=== PATIENT | male | born 1940 | race Two or more races ===

== ENCOUNTER 2018-01-24 14:09 | Inpatient (IN) | payer OTHER ==
[~2018-01-24] VITALS: Ht 190.5 cm; Wt 106.1 kg
[2018-01-24] MEDS ORDERED: METOPROLOL SUCC50 MG PO (14:34)
[2018-01-24] MEDS ORDERED: COZAAR25 MG PO (14:35)
[2018-01-24] MEDS ORDERED: NORVASC5 MG PO (14:35)
[2018-01-24] MEDS ORDERED: ASPIR-LOW81 MG PO (14:36)
[2018-01-24] MEDS ORDERED: METFORMIN HCL500 MG PO (14:36)
== END 2018-01-28 16:26 | disposition home or self-care (01) | DRG 376 ==
LOC: O/R 01-26 07:40 → SURH 01-26 07:40 → RECOVERY 01-26 11:00 → CIR.AMB 01-26 13:15 → EDSTATUS 01-26 13:16 → RECOVERY 01-26 13:16 → SURG 01-26 14:22 → SURH 01-26 15:19
PROVIDERS: Colon & Rectal Surgery
PROC: 0DBP8ZZ Excision of Rectum, Via Natural or Artificial Opening Endoscopic (ICD-10-PCS; principal; 2018-01-26 11:00)
DX: C20 Malignant neoplasm of rectum (principal); I11.9 Hypertensive heart disease without heart failure; E11.9 Type 2 diabetes mellitus without complications

== ENCOUNTER 2018-05-06 09:01 | Inpatient (IN) | payer OTHER ==
[~2018-05-06] VITALS: Ht 190.5 cm; Wt 102.5 kg
[~2018-05-06 09:01] MED LIST: ASPIR-LOW81 MG PO; COZAAR25 MG PO; METFORMIN HCL500 MG PO; METOPROLOL SUCC50 MG PO; NORVASC5 MG PO
== END 2018-05-13 14:51 | disposition home or self-care (01) | DRG 331 ==
LOC: O/R 05-10 05:03 → SURH 05-10 13:39 → SURG 05-10 14:06 → SURH 05-10 15:45 → SURG 05-13 14:51
PROVIDERS: ADMIT Colon & Rectal Surgery
PROC: 07TC4ZZ Resection of Pelvis Lymphatic, Percutaneous Endoscopic Approach (ICD-10-PCS; 2018-05-10)
PROC: 0D1B4Z4 Bypass Ileum to Cutaneous, Percutaneous Endoscopic Approach (ICD-10-PCS; 2018-05-10)
PROC: 0DTN4ZZ Resection of Sigmoid Colon, Percutaneous Endoscopic Approach (ICD-10-PCS; principal; 2018-05-10 15:45)
DX: C20 Malignant neoplasm of rectum (principal); R59.0 Localized enlarged lymph nodes; E11.9 Type 2 diabetes mellitus without complications; I73.89 Other specified peripheral vascular diseases; Z92.3 Personal history of irradiation

== ENCOUNTER → 2018-05-09 | Day surgery (SDC) | payer OTHER | END | disposition home or self-care (01) | LOC: ADM 05-04 09:30 → AMB-ENDOS 09:20 | DX: K64.1 Second degree hemorrhoids (principal) ==

== ENCOUNTER 2018-05-19 18:15 | Inpatient (IN) | payer OTHER ==
[~2018-05-19] VITALS: Ht 190.5 cm; Wt 101.2 kg
--- NOTE | 2018-05-19 18:42 | NUR ---
PT ALERTA Y ORIENTADO X3 ESFERAS QUIEN REFIERE VENIR A ER POR REFERIDO DE SPARKS MD RODRIGUEZ (NO [facility]) POR R/O FALLO RENAL [facility]: BUN: 130, CREATININA: 3.5, sodio: 120, CO2:19, Y DEBILIDAD MUSCULAR. PT OPERADO POR DR MCGRATH POR CA DE COLON, TIENE UN DRENAJE EN LLQ. COLOSTOMIA EN RLQ. [facility] INDICA SPARKS MD LLAMO A DR MCGRATH Y LE INDICO VENIR A ER Y QUE LO LLAMEN. EN TRAIGE PT PRESENTA BP MANUAL 60/40MMMHG.
--- NOTE | 2018-05-19 19:30 | NUR ---
PT ALERTA Y ORIENTADO X3 ESFERAS EN COMPANIA DE FAMILIAR. SE RECIBE EN UNIDAD DE DOLOR DE PECHO EN SILLA DE [place]REILLE DESDE TRIAGE. SE CONECTA A MONITOR CARDIACO Y SATUROMETRO DE PULSO. SE LE ORIENTA A PT Y FAMILIAR SOBRE TRATAMIENTO Y PROTOCOLOS DE LA UNIDAD. SE ROCAEL MUESTRAS DE NINA Y VENOPUNCION CON TECNICAS ASEPTICAS. SE ADMINISTRAN IVFLUIDS ORDENDADOS. SE REALIZA EKG Y SE PRESENTA A DRA BREWSTER. PT TOLERA TX.
--- NOTE | 2018-05-19 21:18 | NUR ---
9:00PM SE LE NOTIFICA B/P MANUAL DE 70/50 A QUIEN ORDENA CAMBIAR RATE DE .9NSS DE 100ML/HR A 150ML/HR. SE COLOCA PTE EN POSICION TRENDELEMBURG. SE VACIA BOLSA DE COLOSTOMIA. SE EDUCA A PTE SOBRE TRATAMIENTO MEDICO.
--- NOTE | 2018-05-19 23:29 | NUR ---
SE RECIBE PTE DEL TUNO ANTERIOR EN CAMA CON BARANDAS ELEVADAS CON IVFS PATENTE, NANO DE EDEMA Y ERITEMA 0.9NSS AT 150ML/HR, CONECTADO A MONITOR CARDIACO. ALERTA, ORIENTADO POR PRIYANK. ACOMPANADO POR FAMILIAR. SE OBSERVA PTE CON UN DRENAJE ABDOMINAL Y COLOSTOMIA. SE MANTIENE EN OBSERVACION Y PENDIENTE A CONSULTA CON .
--- NOTE | 2018-05-20 07:30 | NUR ---
SE RECIBE DE TURNO ANTERIOR EN AREA DE CHEST PAIN CAMA #16. PACIENTE MASCULINO. ALERTA Y ORIENTADO EN PRIYANK ESFERAS. CONECTADO A MONITOR CARDIACO Y OXIMETRIA CON ALARMAS AUDIBLES. CABECERA A 30 GRADOS. BARANDAS ELEVADAS POR SPARKS SEGURIDAD. BUEN PATRON RESPIRATORIO. PIEL TIBIA AL TACTO. CANALIZACION PATENTE, NANO DE EDEMA Y/O ENROJECIMIENTO RECIBIENDO 0.9%NSS @150 ML/HR. ABDOMEN DEPRESIBLE AL TACTO. COLOSTOMIA. VENDAJES EN AREA ABDOMINAL COLOCADOS YA QUE RECIENTEMENTE FUE INTERVENIDO QUIRURGICAMENTE. ALBERT OSORIO DRENANDO A GRAVEDAD FLUIDOS SANGUINOLENTOS. SONDA URINARIA A GRAVEDAD PRESENTANDO ORINA AMARILLO ALBERTO. PACIENTE EN ESPERA DE CONSULTA CON DR MCGRATH Y DR DE LA ROSA.
--- NOTE | 2018-05-20 14:52 | NUR ---
PACIENTE FUE EVALUADO POR DR Sorin DE LA ROSA. SE ORIENTA A PACIENTE SOBRE ORDENES MEDICAS. SE ADMINISTRAN MEDICAMENTOS Y COLECTAN MUESTRAS DE LABORATORIO ORDENADAS (CBC, CMP, BC) BAJO MEDIDAS ASEPTICAS. PENDIENTE A SER EVALUADO POR DR LOPEZ Y DR MCGRATH. SE ORIENTA A PACIENTE Y FAMILIAR SOBRE ORDEN MEDICA DE NPO
--- NOTE | 2018-05-20 15:00 | NUR ---
SE RECIBE MASCULINO ALERTA Y ORIANTADO POR PRIYANK ESFERAS, EN ADE CON BARANDAS ELEVADAS Y SEGURAS. EN COMPANIA DE FAMILIAR. CONECTADO A MONITOR CARDIACO CON OXIMETRIA DE PULSO. CANALIZADO EN ANTEBRAZO MUNIR CON AREA DE VENOPUNCION NANO DE EDEMA O ENROJECIMIENTO. RECIBIENDO 0.9% NSS @ 150 ML/HR. MORALES PATENTE DRENANDO ORINA COLOR AMARILLO. COLOSTOMIA EN LADO DERECHO CON BENDAJES LIMPIOS. DRENAJE ALBERT SANTOS PRESENTE EN LADO MUNIR ABDOMINAL. SE MANTIENE EN OBSERVACION POR CAMBIOS.
[2018-05-24] MEDS ORDERED: IMODIUM A-D2 M2 PO (10:35)
== END 2018-05-24 14:20 | disposition home or self-care (01) | DRG 699 ==
LOC: ER 18:15 → SEC-K 05-20 18:06 → SURH 05-20 18:06
PROVIDERS: ADMIT Colon & Rectal Surgery
DX: N99.0 Postprocedural (acute) (chronic) kidney failure (principal); C20 Malignant neoplasm of rectum; E86.0 Dehydration; E11.9 Type 2 diabetes mellitus without complications; I11.9 Hypertensive heart disease without heart failure; I73.89 Other specified peripheral vascular diseases; Z93.2 Ileostomy status; Z92.21 Personal history of antineoplastic chemotherapy; Z92.3 Personal history of irradiation